=== PATIENT | female | born 1970 | race Caucasian/White ===

== ENCOUNTER 2018-06-21 07:45 | Inpatient (IN) ==
[2018-06-14 18:43] LABS: Appearance,Urine HAZY; Bacteria,Urine FEW /hpf (0); Bilirubin,Urine NEG (NEG); Color,Urine YELLOW; Glucose,Urine (UA) NEGATIVE (NEG); Leukocyte Esterase,Urine 25 /uL (NEG); Mucus,Urine MANY /hpf (0); Protein,Urine NEG (NEG); Urine Blood 0.03 mg/dL (<0.03); Urine Hyaline Cast 1 /lpf (0-2); Urine RBC 2 /hpf (0-1); Urine Squamous Epithelial Cell 3 /hpf (0-4); Urine WBC 15 /hpf (0-4); Urobilinogen,Urine NEG (NEG)
[2018-06-14 18:47] LABS: Blood Urea Nitrogen 14 mg/dl (6-20)
[2018-06-14 18:50] LABS: Basophils # (Auto) 0 K/mcL (0.0-0.3); Basophils % (Auto) 0.6 % (0.0-2.0); Eosinophils # (Auto) 0.2 K/mcL (0.0-0.7); Granulocytes % (Auto) 59.8 % (38.0-78.0); Lymphocytes # (Auto) 2.8 K/mcL (1.5-4.8); Lymphocytes % (Auto) 31.7 % (15.5-49.0); Mean Corpuscular HGB Conc 32.7 g/dL (31.0-36.0); Monocytes # (Auto) 0.5 K/mcL (0.1-0.9); Monocytes % (Auto) 5.9 % (1.0-12.0); Platelet Count 242 K/mcL (140-440); RBC 4.62 M/mcL (4.00-5.20); Red Cell Distribution Width 14.5 % (11.5-14.5)
[~2018-06-21 07:45] MED LIST: 0.9 % SODIUM CHLORIDE 9 ML, KETOROLAC 30 MG, ROPIVACAINE HCL/PF 49.5 ML, EPINEPHrine 0.... IJ SCH; SCOPOLAMINE 1 PATCH PATCH TOPICAL ONE; ceFAZolin 2 GM in DEXTROSE 5% IN WATER 50 ML IV SCH; ceFAZolin 3 GM in DEXTROSE 5% IN WATER 50 ML IV SCH
[2018-06-21] MEDS ORDERED: GENTAMICIN PER PHARMACY IV ONE (10:24)
[2018-06-21] MEDS ORDERED: SODIUM CHLORIDE 0.9% IV ONE (10:30)
[2018-06-21] MEDS ORDERED: GENTAMICIN SULFATE IV ONE (10:30)
[2018-06-21] MEDS ORDERED: GLYCOPYRROLATE 0.2 MG/ML VIAL IV ONE (10:54)
[2018-06-21] MEDS ORDERED: MIDAZOLAM 2 MG/2 ML VIAL ONE (10:54)
[2018-06-21] MEDS ORDERED: ONDANSETRON 4 MG/2 ML VIAL ONE (10:54)
[2018-06-21] MEDS ORDERED: KETAMINE 100 MG/ML ML ONE (10:54)
[2018-06-21] MEDS ORDERED: LIDOCAINE HCL/PF 100 MG/5 ML SYRINGE IV ONE (10:54)
[2018-06-21] MEDS ORDERED: DEXAMETHASONE 4 MG/ML VIAL ONE (10:54)
[2018-06-21] MEDS ORDERED: PROPOFOL 200 MG/20 ML VIAL IV ONE (10:54)
[2018-06-21] MEDS ORDERED: FAMOTIDINE/PF 20 MG/2 ML VIAL IV ONE (10:54)
[2018-06-21 11:12] LABS: Appearance,Urine CLEAR; Bilirubin,Urine NEG (NEG); Color,Urine YELLOW; Glucose,Urine (UA) NEGATIVE (NEG); Leukocyte Esterase,Urine NEG /uL (NEG); Protein,Urine NEG (NEG); Specific Gravity,Urine 1.014 (1.000-1.035); Urine Blood NEG mg/dL (<0.03); Urobilinogen,Urine NEG (NEG)
[2018-06-21] MEDS ORDERED: GENTAMICIN SULFATE 800 MG/20 ML VIAL IR ONE (11:35)
[2018-06-21] MEDS ORDERED: MAGNESIUM HYDROXIDE 30 ML ORAL.SUSP PO PRN (13:13)
[2018-06-21] MEDS ORDERED: BENZOCAINE/MENTHOL 1 LOZENGE PO PRN ×2 (13:13→13:39)
[2018-06-21] MEDS ORDERED: ONDANSETRON 4 MG/2 ML VIAL IV PRN ×2 (13:13→13:39)
[2018-06-21] MEDS ORDERED: BISACODYL 10 MG SUPP.RECT PR PRN (13:13)
[2018-06-21] MEDS ORDERED: POLYETHYLENE GLYCOL 3350 17 GM PACKET PO PRN (13:13)
[2018-06-21] MEDS ORDERED: TRANEXAMIC ACID 1,000 MG/10 ML VIAL IV SCH (13:13)
--- NOTE | 2018-06-21 13:24 | Brief Operative Note ---
Date of procedure: 06/21/18 Pre-op diagnosis: DJD left knee Post-op diagnosis: same Procedure: L TKR Grafts/Implants: Yes (triathlon sixe 6 femur, 45 tibia, 32 mm patella, 100 insert) Anesthesia: GETA Complications: none Surgeon: Jeferson Ivy Nuclear Technologist: Jeferson Ivy Estimated blood loss (cc): 250 Tourniquet Time (Minutes): 97 Specimens Removed/Pathology: none sent Condition: stable Disposition: PACU
[2018-06-21] MEDS ORDERED: LEVONORGESTREL 1 EACH IUD IY SCH (13:30)
[2018-06-21] MEDS ORDERED: HYDROmorphone 2 MG/ML VIAL IV PRN (13:39)
[2018-06-21] MEDS ORDERED: FLUMAZENIL 0.1 MG/ML ML IV PRN (13:39)
[2018-06-21] MEDS ORDERED: MEPERIDINE 50 MG/ML INJECTION IM PRN (13:39)
[2018-06-21] MEDS ORDERED: IPRATROPIUM/ALBUTEROL 3 ML AMPUL.NEB NEB PRN (13:39)
[2018-06-21] MEDS ORDERED: ACETAMINOPHEN 1,000 MG/100 ML BOTTLE IV ONE (13:39)
[2018-06-21] MEDS ORDERED: PROMETHAZINE 25 MG/ML VIAL IM PRN (13:39)
[2018-06-21] MEDS ORDERED: PROMETHAZINE 25 MG/ML VIAL IV PRN (13:39)
[2018-06-21] MEDS ORDERED: NALOXONE HCL 0.4 MG/ML VIAL IV PRN (13:39)
[2018-06-21] MEDS ORDERED: MEPERIDINE 25 MG/ML SYRINGE IV PRN (13:39)
[2018-06-21] MEDS ORDERED: fentaNYL 100 MCG/2 ML VIAL IV PRN (13:39)
[2018-06-21] MEDS ORDERED: LACTATED RINGERS 250 ML IV PRN (13:39)
[2018-06-21] MEDS ORDERED: LACTATED RINGERS 1,000 ML IV SCH (13:45)
--- NOTE | 2018-06-21 14:14 | XRay Report ---
CLINICAL INFORMATION: Left total knee arthroplasty TECHNIQUE: AP, crosstable lateral, patellar views COMPARISON: Preoperative evaluation dated 07/06/2017 FINDINGS: Status post left total knee arthroplasty. Femoral and tibial components are in anatomic positions. There is postsurgical soft tissue and intra-articular gas. IMPRESSION: Status post left total knee arthroplasty Interpreted and Authenticated by: Ivan Zuluaga 06/21/18
[2018-06-21] MEDS: 0.9 % SODIUM CHLORIDE 1,000 ML IV SCH (14:51)
[2018-06-21] MEDS: 0.9 % SODIUM CHLORIDE 10 ML SYRINGE IV SCH ×2 (14:51→21:24)
[2018-06-21] MEDS: METHOCARBAMOL 1,000 MG/10 ML VIAL IV PRN (15:08)
[2018-06-21] MEDS: FERROUS SULFATE 325 MG TABLET PO SCH (17:49)
[2018-06-21] MEDS: ceFAZolin 1 GM VIAL IV SCH (17:49)
[2018-06-21] MEDS ORDERED: TEMAZEPAM 15 MG CAPSULE PO PRN (21:00)
[2018-06-21] MEDS ORDERED: SULFAMETHOXAZOLE/TRIMETHOPRIM 1 TABLET PO SCH (21:00)
[2018-06-21] MEDS: DOCUSATE SODIUM 100 MG CAPSULE PO SCH (21:23)
[2018-06-21] MEDS: HYDROcodone/APAP 10/325MG TABLET PO PRN (21:23)
[2018-06-21] MEDS: SENNOSIDES 1 TABLET PO SCH (21:23)
[2018-06-21] MEDS: ASPIRIN 325 MG ENTERIC COATED TABLET PO SCH (21:23)
[2018-06-22] MEDS: ceFAZolin 1 GM VIAL IV SCH (02:03)
[2018-06-22] MEDS: METHOCARBAMOL 1,000 MG/10 ML VIAL IV PRN (03:51)
[2018-06-22] MEDS: 0.9 % SODIUM CHLORIDE 1,000 ML IV SCH ×2 (04:44→15:38)
[2018-06-22] MEDS: DOCUSATE SODIUM 100 MG CAPSULE PO SCH ×2 (08:51→20:54)
[2018-06-22] MEDS: SULFAMETHOXAZOLE/TRIMETHOPRIM 1 TABLET PO SCH ×2 (08:51→20:55)
[2018-06-22] MEDS: HYDROcodone/APAP 10/325MG TABLET PO PRN ×3 (08:51→20:53)
[2018-06-22] MEDS: ASPIRIN 325 MG ENTERIC COATED TABLET PO SCH ×2 (08:51→20:54)
[2018-06-22] MEDS: 0.9 % SODIUM CHLORIDE 10 ML SYRINGE IV SCH ×3 (08:52→20:55)
--- NOTE | 2018-06-22 09:51 | Operative Note ---
DATE OF OPERATION: 06/21/2018 PREOPERATIVE DIAGNOSIS: Degenerative joint disease of the left knee. POSTOPERATIVE DIAGNOSIS: Degenerative joint disease of the left knee. OPERATION: Left total knee replacement using the Axel and a Najma Triathlon knee. SURGEON: Jeferson Ivy M.D. RENDERER: José Manuel Baker PA-C. ANESTHESIA: General. TOURNIQUET TIME: About 90 minutes. ESTIMATED BLOOD LOSS: 100 mL. SUMMARY OF PROCEDURE: General anesthesia was attained. The left leg was prepped and draped, and the tourniquet was put up at 300 mmHg. A midline incision was made from the quadriceps to the tibial tubercle. This was taken down sharply to the quadriceps and medial retinaculum. The medial soft tissue on the anterior aspect of the tibia was released. The patella was mobilized laterally. The fat pad was debrided. The anterior menisci were resected. Proximal and distal to the incision, the arrays and the pins and clamp for the arrays were placed. Two slit incisions were made in each area. Blunt dissection was used to get down to the bone, and the pins were placed in the bone. The arrays were tightened and a sensor was placed. The hip center was located by rotating the hip and leg counterclockwise. The medial malleoli was identified as was the lateral malleolus. The femoral and tibial markers were placed. They were both then identified under the robot. Point confirmation was then done and registered on the femur, followed by the tibia. The first cut that was made with the robot was the tibia. This was followed by the posterior condyles and the posterior bevel, the anterior cut, and the anterior bevel on the distal cut. Trial components were placed. Overall, we felt the components were equally tight in flexion and extension, suggesting we needed a more distal tibial cut. We therefore recut the tibia 3 mm below the previous cut using the robotic guidance. We then retrialed everything and got an excellent combination of stability with a full range of motion. The patella was everted. A measured resection was done bringing the patella from 25 down to 14. The patella sized to a 32. The femoral size was 6 and the tibial size was 5. A 10 mm insert was used. All the bone surfaces were copiously irrigated. The components were cemented in. The cement was cured in full extension. Excess cement was removed. The no-touch test did show some lateral retinacular tightness. We therefore did a lateral retinacular release. The tourniquet was let down after the cement had hardened. Again, all excess cement was removed, and this was checked in extension and flexion. The quadriceps was closed in two layers using [id number] sutures of #2 FiberWire for the initial layer, followed by running locking Maxon. The subcutaneous tissue was closed with interrupted buried 2-0 Monocryl. The skin was closed with Dura-Markham. A sterile compressive dressing was applied. Prior to the wound closure, the tourniquet had been let down. Estimated blood loss was 100 mL. The sponge and needle count was correct. The patient tolerated the procedure well and was taken to the recovery room in stable condition. LESLIEF:amy Job ID: [id number] Doc ID: [id number] Jeferson Ivy MD
--- NOTE | 2018-06-22 10:08 | Orthopedic Progress Note ---
Subjective Patient information: Note initiated : 06/22/18 at 10:02 am Service Date, if different from initiated Date: [] Patient: Megan De La Cruz 47 y/o F admitted on 06/21/18 for Left Total Knee Arthroplasty Axel. Chief Complaint: [] Principal diagnosis: left knee replacement yesterday Objective Vital signs: Vital Signs Temp Pulse Resp BP BP Pulse Ox 06/22/18 08:00 18 98 06/22/18 06:44 98.9 F 18 125/68 98 06/22/18 03:53 98.2 F 82 16 112/73 95 06/21/18 23:59 97.9 F 83 16 97/54 98 06/21/18 19:15 97.6 F 94 H 16 131/78 93 06/21/18 17:45 85 138/85 94 06/21/18 17:30 97 H 18 137/83 95 06/21/18 17:15 87 151/87 96 06/21/18 17:00 79 141/89 95 06/21/18 16:45 97 H 137/83 95 06/21/18 16:30 64 18 131/74 94 06/21/18 16:15 97.5 F 83 135/82 97 06/21/18 16:00 97.5 F 82 18 133/78 94 06/21/18 15:45 86 18 141/80 96 06/21/18 15:30 76 16 125/73 91 06/21/18 15:15 74 18 116/76 95 06/21/18 15:00 97.3 F 78 14 135/81 96 06/21/18 14:35 97.2 F 78 13 142/73 96 06/21/18 14:22 98.1 F 85 16 147/70 95 06/21/18 14:05 98.9 F 71 16 146/72 96 06/21/18 13:50 74 15 147/71 97 06/21/18 13:45 76 14 138/87 96 06/21/18 13:40 79 8 L 124/50 98 06/21/18 13:35 98.9 F 90 13 136/79 96 Intake and Output 06/21/18 06/22/18 06/22/18 21:59 05:59 13:59 Intake Total 2340 1700 Output Total 901 1000 Balance 1439 700 Intake: IV 1000 Sodium Chloride 0.9% 1,000 ml @ 1000 75 mls/hr IV .[id number] KEE Rx#: [id number] Oral 240 GI Tube Flush 700 IV - Manual Only 2100 Output: Void Amount 900 1000 # of times incontinent of urine 1 Other: Meal Dinner Percent of Meal Consumed 75% Feeding Ability Independent Independent Urine Appearance Clear Clear Urine Color Bright Yellow Dark Yellow Bright Yellow Urine Odor Normal Normal Weight 314 lb 8 oz Intake & Output: Intake & Output 06/21/18 06/22/18 06/22/18 21:59 05:59 13:59 Intake Total 2340 1700 Output Total 901 1000 Balance 1439 700 Weight 314 lb 8 oz Intake: IV 1000 Sodium Chloride 0.9% 1,000 ml @ 1000 75 mls/hr IV .[id number] KEE Rx#: [id number] Oral 240 GI Tube Flush 700 IV - Manual Only 2100 Output: Void Amount 900 1000 # of times incontinent of urine 1 Other: Meal Dinner Percent of Meal Consumed 75% Feeding Ability Independent Independent Urine Appearance Clear Clear Urine Color Bright Yellow Dark Yellow Bright Yellow Urine Odor Normal Normal Dressing: Yes clean, Yes dry Weight bearing status: full Extremities exam IM: Yes neurovascular intact - Allied Health Allied health notes reviewed: PT - Labs CBC & BMP: 06/14/18 15:46 06/14/18 15:46 Labs: 06/14/18 15:46 Hgb 12.8 Hct 39.2 Assessment and Plan - Narrative A/P Narrative: doing well. Discussed d/c plan as she lives alone. she will try to get independent with walking by Monday
[2018-06-22] MEDS: FERROUS SULFATE 325 MG TABLET PO SCH ×2 (12:21→17:33)
[2018-06-22] MEDS: SENNOSIDES 1 TABLET PO SCH (20:54)
[2018-06-23] MEDS: 0.9 % SODIUM CHLORIDE 10 ML SYRINGE IV SCH (04:57)
[2018-06-23] MEDS: HYDROcodone/APAP 10/325MG TABLET PO PRN (07:02)
[2018-06-23] MEDS: DOCUSATE SODIUM 100 MG CAPSULE PO SCH (09:10)
[2018-06-23] MEDS: SULFAMETHOXAZOLE/TRIMETHOPRIM 1 TABLET PO SCH (09:10)
[2018-06-23] MEDS: ASPIRIN 325 MG ENTERIC COATED TABLET PO SCH (09:10)
[2018-06-23] MEDS: FERROUS SULFATE 325 MG TABLET PO SCH (11:14)
--- NOTE | 2018-06-23 12:06 | Discharge Summary ---
Providers - Providers Patient information: Note initiated : 06/23/18 at 12:04 pm Service Date, if different from initiated Date: [] Patient: Megan De La Cruz 47 y/o F admitted on 06/21/18 for Left Total Knee Arthroplasty Axel. Chief Complaint: [] Date of admission: 06/21/18 Discharge date: 06/23/18 Attending physician: Jeferson Ivy Hospitalization Hospital course: Pt admitted s/p total knee arthroplasty. Progressed satisfactorily and was d/c'd POD#2. Discharge diagnosis: s/p L total knee arthroplasty Reason for admission: Left knee pain Procedures: Left total knee 06/21/18 Exam - Exam Clean and dry: Yes (NVI distally) Ortho Discharge - TKA - Patient Instructions Diet: Regular Diet Activity: weight bearing as tolerated Total Knee Protocol: For Total Knee: Start ROM LEVI with stationary bike or rocking chair. Work on gaining full extension of knee. Posterior dislocation precautions provided. Hip abductor strengthening and gait training instructions provided. Apply Cryocuff as instructed. Dressing Care: Aquacel Ag - leave on for 5 days Patient Education: Hydrocodone/Acetaminophen (By mouth), Total Knee Replacement (DC) Additional Instructions: Discharge Instructions: Do the exercises at home that physical therapy gave you throughout the day. Weight bearing as tolerated. Wear comfortable clothing for physical therapy. You are scheduled to start physical therapy on June 25 at 10:30 am, please arrive 15 minutes early for paperwork. Take your prescription, photo ID, insurance cards, and current medication list with you to your first physical therapy appointment. Take your prescription to cook pickled meat any medication. You have Dermabond (a dressing with a mesh-like appearance), DO NOT remove mesh. Cover site daily with gauze dressing. You may start showering on post op day #2. The Dermabond dressing can get wet, do not scrub dressing. Pat dry, then place new dressing (above). To avoid constipation while taking any narcotic pain medication, take an over the counter stool softener/laxative. Use your Cryocuff or ice packs as directed, on for 20 minutes at a time throughout the day. This and elevation will help with pain and swelling. Call your physician for fevers above 100.5 or pain not controlled by medication. Your prescriptions are with your discharge information. Some medications were electronically transmitted to your pharmacy of choice. - Follow Up Plan Follow Up Appointments: José Manuel Baker PA-C [Physician Cargo Tank Mechanic] - 07/04/18 10:40 am Disposition: Home, Self-Care Prognosis: Fair Rehab Potential: Fair I certify that the patient requires SNF services: No - Orders For Discharge Prescriptions: HYDROcodone/APAP 10/325MG [Delano 10-325Mg] 1 tab PO Q4HP PRN #40 tab PRN Reason: Pain Level 3-6 Additional Discharge Orders: Physical Therapy at Discharge - TKA Location: None Selected Pending Studies Resuscitation Status Full Code Diet Regular Diet Start Tonya Jun 21 1504 Hydrocodone Bitart/Acetaminophen (Delano 10/325mg) 0 tab PO Q4HP PRN PRN Reason: PAIN LEVEL 3-6 Last Admin: 06/23/18 07:02 Dose: 2 tab Documented by: Admin: 06/22/18 20:53 Dose: 2 tab Documented by: Admin: 06/22/18 15:01 Dose: 1 tab Documented by: Admin: 06/22/18 08:51 Dose: 1 tab Documented by: Admin: 06/21/18 21:23 Dose: 1 tab Documented by: ANNIE Aspirin (Ecotrin) 325 mg PO BID [facility] Last Admin: 06/23/18 09:10 Dose: 325 mg Documented by: Admin: 06/22/18 20:54 Dose: 325 mg Documented by: Admin: 06/22/18 08:51 Dose: 325 mg Documented by: Admin: 06/21/18 21:23 Dose: 325 mg Documented by: ANNIE Docusate Sodium (Colace) 100 mg PO BID [facility] Last Admin: 06/23/18 09:10 Dose: 100 mg Documented by: Admin: 06/22/18 20:54 Dose: 100 mg Documented by: Admin: 06/22/18 08:51 Dose: 100 mg Documented by: Admin: 06/21/18 21:23 Dose: 100 mg Documented by: ANNIE Ferrous Sulfate (Ferrous Sulfate) 325 mg PO BID@1200,1800 [facility] Last Admin: 06/23/18 11:14 Dose: 325 mg Documented by: Admin: 06/22/18 17:33 Dose: 325 mg Documented by: Admin: 06/22/18 12:21 Dose: 325 mg Documented by: Admin: 06/21/18 17:49 Dose: 325 mg Documented by: BROOKE Methocarbamol (Robaxin) 750 mg IV Q6HP PRN PRN Reason: Muscle Spasm Last Admin: 06/22/18 03:51 Dose: 750 mg Documented by: Admin: 06/21/18 15:08 Dose: 750 mg Documented by: BROOKE Senna (Senokot) 2 tab PO HS [facility] Last Admin: 06/22/18 20:54 Dose: 2 tab Documented by: Admin: 06/21/18 21:23 Dose: 2 tab Documented by: ANNIE Sodium Chloride (Saline Flush) 10 ml IV Q8 [facility] Last Admin: 06/23/18 04:57 Dose: 10 ml Documented by: Admin: 06/22/18 20:55 Dose: Not Given Documented by: Admin: 06/22/18 15:02 Dose: 10 ml Documented by: Admin: 06/22/18 08:52 Dose: 10 ml Documented by: Admin: 06/21/18 21:24 Dose: Not Given Documented by: Admin: 06/21/18 14:51 Dose: Not Given Documented by: BROOKE Trimethoprim/Sulfamethoxazole (Bactrim Ds) 1 tab PO BID [facility] Last Admin: 06/23/18 09:10 Dose: 1 tab Documented by: Admin: 06/22/18 20:55 Dose: 1 tab Documented by: Admin: 06/22/18 08:51 Dose: 1 tab Documented by: ANGELIC Shift Summary 06/23/18 05:14 Shift Summary by Chantel Alba VSDebi A&Ox4. Medicated for pain with 10mg PO Delano x 2. Up to bathroom with FWW and SBA. Dressing to L knee with pencil eraser size shadow drainage. Cryo cuff on/off. CPM worn last evening for approx. 1 hour up to 45 degrees. Initialized on 06/23/18 05:14 - END OF NOTE
[2018-06-24] MEDS ORDERED: ERGOCALCIFEROL (VITAMIN D2) 50,000 UNIT CAPSULE PO SCH (09:00)
== END 2018-06-23 13:40 | disposition home or self-care (01) | DRG 470 ==
LOC: MEDSUR 08:44
PROVIDERS: ADMIT Orthopaedic Surgery Foot and Ankle Surgery; ATTEND Orthopaedic Surgery Foot and Ankle Surgery

== ENCOUNTER 2018-08-23 04:49 | Inpatient (IN) ==
[2018-08-22 18:05] LABS: Appearance,Urine CLEAR; Bilirubin,Urine NEG (NEG); Color,Urine YELLOW; Culture Indicated,Urine NO; Glucose,Urine (UA) NEGATIVE (NEG); Ketones,Urine NEG (NEG); Leukocyte Esterase,Urine NEG /uL (NEG); Nitrate,Urine NEG (NEG); Protein,Urine NEG (NEG); Urine Blood NEG mg/dL (<0.03); Urobilinogen,Urine NEG (NEG)
[2018-08-22 19:35] LABS: Basophils # (Auto) 0 K/mcL (0.0-0.3); Basophils % (Auto) 0.5 % (0.0-2.0); Eosinophils # (Auto) 0.2 K/mcL (0.0-0.7); Eosinophils % (Auto) 2.4 % (0.0-7.0); Granulocytes % (Auto) 63.8 % (38.0-78.0); Hematocrit 35.5 % (36.0-48.0); Hemoglobin 11.5 g/dL (12.0-15.0); Lymphocytes # (Auto) 2.2 K/mcL (1.5-4.8); Lymphocytes % (Auto) 26.4 % (15.5-49.0); Mean Cell Volume 84.4 fL (80.0-100.0); Mean Corpuscular HGB Conc 32.3 g/dL (31.0-36.0); Monocytes # (Auto) 0.6 K/mcL (0.1-0.9); Monocytes % (Auto) 6.9 % (1.0-12.0); Platelet Count 351 K/mcL (140-440); Red Cell Distribution Width 13.9 % (11.5-14.5); WBC 8.2 K/mcL (4.5-11.0)
[2018-08-22 19:38] LABS: Blood Urea Nitrogen 9 mg/dl (6-20); Calcium 9.4 mg/dl (8.6-10.4); Carbon Dioxide 25 mmol/L (22-30); Chloride 101 mmol/L (96-108); Glomerular Filtration Rate 103; Glucose 106 mg/dL (70-105); Potassium 4.1 mmol/L (3.3-5.1); Sodium 140 mmol/L (133-145)
[~2018-08-23 04:49] MED LIST changes: -0.9 % SODIUM CHLORIDE 9 ML, KETOROLAC 30 MG, ROPIVACAINE HCL/PF 49.5 ML, EPINEPHrine 0.... IJ SCH; +IPRATROPIUM/ALBUTEROL 3 ML AMPUL.NEB NEB PRN; -SCOPOLAMINE 1 PATCH PATCH TOPICAL ONE; +SCOPOLAMINE 1 PATCH PATCH TOPICAL PRN; -ceFAZolin 2 GM in DEXTROSE 5% IN WATER 50 ML IV SCH; -ceFAZolin 3 GM in DEXTROSE 5% IN WATER 50 ML IV SCH
[2018-08-23] MEDS ORDERED: SCOPOLAMINE 1 PATCH PATCH TOPICAL PRN (05:00)
[2018-08-23] MEDS ORDERED: IPRATROPIUM/ALBUTEROL 3 ML AMPUL.NEB NEB PRN ×2 (05:00→08:12)
[2018-08-23] MEDS ORDERED: ceFAZolin 3 GM in DEXTROSE 5% IN WATER 50 ML IV SCH (06:00)
[2018-08-23] MEDS ORDERED: PROPOFOL 200 MG/20 ML VIAL IV ONE (07:35)
[2018-08-23] MEDS ORDERED: fentaNYL 250 MCG/5 ML VIAL IV ONE (07:35)
[2018-08-23] MEDS ORDERED: DEXAMETHASONE 10 MG/ML VIAL IV ONE (07:35)
[2018-08-23] MEDS ORDERED: MIDAZOLAM 5 MG/5 ML VIAL IV ONE (07:35)
[2018-08-23] MEDS ORDERED: LIDOCAINE HCL/PF 100 MG/5 ML SYRINGE IV ONE (07:35)
[2018-08-23] MEDS ORDERED: TRANEXAMIC ACID 1,000 MG/10 ML VIAL IV ONE ×2 (07:35→08:59)
[2018-08-23] MEDS ORDERED: ONDANSETRON 4 MG/2 ML VIAL IV ONE (07:35)
[2018-08-23] MEDS ORDERED: GENTAMICIN SULFATE 800 MG/20 ML VIAL IR ONE (08:07)
[2018-08-23] MEDS ORDERED: METHOCARBAMOL 1,000 MG/10 ML VIAL IV PRN (08:12)
[2018-08-23] MEDS ORDERED: ONDANSETRON 4 MG/2 ML VIAL IV PRN ×2 (08:12→08:59)
[2018-08-23] MEDS ORDERED: HYDROmorphone 2 MG/ML VIAL IV PRN (08:12)
[2018-08-23] MEDS ORDERED: ATROPINE SULFATE 0.4 MG/ML VIAL IV PRN (08:12)
[2018-08-23] MEDS ORDERED: ePHEDrine 50 MG/ML AMPUL IV PRN (08:12)
[2018-08-23] MEDS ORDERED: PROMETHAZINE 25 MG/ML VIAL IV PRN (08:12)
[2018-08-23] MEDS ORDERED: NALOXONE HCL 0.4 MG/ML VIAL IV PRN (08:12)
[2018-08-23] MEDS ORDERED: diphenhydrAMINE 50 MG/ML VIAL IV PRN (08:12)
[2018-08-23] MEDS ORDERED: FLUMAZENIL 0.1 MG/ML ML IV PRN (08:12)
[2018-08-23] MEDS ORDERED: METOPROLOL TARTRATE 5 MG/5 ML VIAL IV PRN (08:12)
[2018-08-23] MEDS ORDERED: ACETAMINOPHEN 1,000 MG/100 ML BOTTLE IV ONE (08:12)
[2018-08-23] MEDS ORDERED: MEPERIDINE 25 MG/ML SYRINGE IV PRN (08:12)
[2018-08-23] MEDS ORDERED: LACTATED RINGERS 1,000 ML IV SCH (08:15)
[2018-08-23] MEDS ORDERED: TOBRAMYCIN SULFATE 1.2 GM VIAL TOPICAL ONE (08:33)
[2018-08-23] MEDS ORDERED: VANCOMYCIN 500 MG VIAL TOPICAL SCH (08:45)
[2018-08-23] MEDS ORDERED: BENZOCAINE/MENTHOL 1 LOZENGE PO PRN (08:59)
[2018-08-23] MEDS ORDERED: BISACODYL 10 MG SUPP.RECT PR PRN (08:59)
[2018-08-23] MEDS ORDERED: MAGNESIUM HYDROXIDE 30 ML ORAL.SUSP PO PRN (08:59)
[2018-08-23] MEDS ORDERED: METHOCARBAMOL 750 MG TABLET PO PRN (08:59)
[2018-08-23] MEDS ORDERED: FLEETS ADULT ENEMA PR PRN (08:59)
[2018-08-23] MEDS ORDERED: POLYETHYLENE GLYCOL 3350 17 GM PACKET PO PRN (08:59)
--- NOTE | 2018-08-23 09:14 | Brief Operative Note ---
Date of procedure: 08/23/18 Pre-op diagnosis: infected left knee /s/p arrthroplasty Post-op diagnosis: same Procedure: Liner exchange, irrigation, debridement, biopsies, placement of atb beads Grafts/Implants: Yes ( 9 mm poly liner, CS) Anesthesia: GETA Surgeon: Jeferson Ivy Animal Pathology Teacher: José Manuel Baker Estimated blood loss (cc): 100 Tourniquet Time (Minutes): 32 Specimens Removed/Pathology: other (extrasynovial, intrasynovial, bone of femur, bone of tibia biopsy (3), cultures (4)) Condition: stable Disposition: floor
[2018-08-23] MEDS ORDERED: LEVONORGESTREL IY SCH (09:15)
[2018-08-23] MEDS ORDERED: VANCOMYCIN 500 MG VIAL TOPICAL ONE (09:15)
--- NOTE | 2018-08-23 09:23 | Infectious Disease Consult ---
History of Present Illness Patient information: Note initiated : 08/23/18 at 9:21 am Service Date, if different from initiated Date: [] Patient: Megan De La Cruz 47 y/o F admitted on 08/23/18 for Removal and Exchange Left Knee Liner Placement. Chief Complaint: [] Consult date: 08/23/18 Requesting Physician: Jeferson Ivy Reason for Consult: Left prosthetic knee infection Chief complaint: my knee turned red and swollen History of present illness: 47 year old lady with left TKA done about 2.5 mnths ago, now admitted with knee swelling and pain concerning for infection. She underwent "Liner exchange, irrigation, debridement, biopsies, placement of antibiotic beads" this am per Dr Ivy. She recieved periop IV Cefazolin. She does not remember if she had a preop MRSA nasal screening or not prior to the original surgery. I saw her after surgery in afternoon. She reported that "I got almost bone-to bone osteoarthritis in my left knee. I underwent elective left knee TKA in June 2018". She did well after surgery, recovered completely and went back to work and was doing fine. Last week, she noticed pain in left knee while walking which was followed by redness, swelling. Around Monday pt went to [facility], where she was placed on water pills initially and then recieved antibiotics. She didnot have knee aspiration done there. She was seen by Dr. Ivy in clinic on 08/22/18 when she underwent left knee aspiration and was asked to come to hospital for surgery. Denied any sick contacts, trauma to knee, any skin boils recently. Review of Systems All systems PM: reviewed and no additional remarkable complaints except as stated Past History Past family history: No sick contacts Past social history: doesnt smoke or use alc or IV drugs Medications and Allergies Home Medications Medication Instructions Recorded Confirmed Type ergocalciferol (vitamin D2) 50,000 1 cap PO SUWE@0900 28 Days #8 cap 05/22/18 08/23/18 History unit capsule infliximab 100 mg intravenous 600 mg IV .Q5w each 05/22/18 08/22/18 History solution Diclofenac Sodium [Voltaren] 100 gm TP PRN PRN 06/14/18 08/22/18 History Levonorgestrel [Mirena] 1 each IY ONCE 06/14/18 08/22/18 History Sulfamethoxazole/Trimethoprim 800 tab PO BID 06/21/18 08/23/18 History [Bactrim Ds] Acetaminophen [8Hr Arthritis Pain] 650 mg PO TID 08/22/18 08/23/18 History Cephalexin [Keflex] 500 mg PO QID 08/22/18 08/23/18 History oxyCODONE HCL [Roxicodone] 1 tab PO Q4HP PRN #60 tab 08/24/18 Rx Allergies Allergy/AdvReac Type Severity Reaction Status Date / Time fluticasone AdvReac Mild Other Verified 08/22/18 16:07 [From Advair Diskus] hydrocodone AdvReac Mild Nausea Verified 08/22/18 16:07 NSAIDS (Non-Steroidal AdvReac Mild GI upset Verified 08/22/18 16:07 Anti-Inflamma salmeterol AdvReac Mild Other Verified 08/22/18 16:07 [From Advair Diskus] Physical Examination Vital signs: Temp Pulse Resp BP Pulse Ox 37.1 C 78 20 138/79 97 08/23/18 04:59 08/23/18 04:59 08/23/18 04:59 08/23/18 04:59 08/23/18 04:59 General appearance: no acute distress Eyes pulmonary: nonicteric ENT: other (no thrush) Auscultation: bilateral: clear Cardiovascular: regular rate and rhythm Gastrointestinal: normoactive bowel sounds, soft, non-tender Extremities: no edema Gait: other (left knee under surgical dressing (therefore could not be examined)) Results - Laboratory Findings CBC and BMP: 08/22/18 16:37 08/22/18 16:37 Abnormal lab findings: Abnormal Labs 08/22/18 08/22/18 16:37 16:37 Hgb 11.5 L Hct 35.5 L Glucose 106 H Assessment and Plan - Narrative A/P Narrative: A: 1. Left prosthetic knee infection: - POD # 0 after Incision and drainage, Liner exchange, Bone biopsies of the left femur and the left tibia, Placement of antibiotic beads - Operative Cx being processed. GS showing few WBCs, mod RBCs and no organisms - MRSA nasal screen negative today 2. Obesity Recommendations: - will arrange PICC line placement tomorrow. - Start IV Vancomycin per pharmacy assisted dosing. Check trough before the 4th dose (target 10-20) - Start IV Ceftriaxone 2 gm q24 hrs - await results of synovial fluid sent for 16S rRNA sequencing sent on 08/22/18 -unless synovial fluid Cx are showing results, will plan for 6 weeks course of above antibiotics - will check baseline ESR and CRP tomorrow will follow James Quach MD Infectious diseases
[2018-08-23] MEDS: fentaNYL 100 MCG/2 ML VIAL IV PRN ×4 (09:42→09:48)
--- NOTE | 2018-08-23 10:27 | Operative Note ---
DATE OF OPERATION: 08/23/2018 PREOPERATIVE DIAGNOSIS: Infection, status post left total knee replacement. POSTOPERATIVE DIAGNOSIS: Infection, status post left total knee replacement. OPERATION: 1. Incision and drainage. 2. Liner exchange. 3. Bone biopsies of the left femur and the left tibia. 4. Placement of antibiotic beads. SURGEON: Jeferson Ivy MD GUITAR REPAIRER: José Manuel Baker PA-C. The PA's assistance was required for the safe and efficient completion of the entire case. This provider's expertise and technical skill were required throughout the case. The PA assisted with preoperative coordination, intraoperative retraction, wound closure, dressing and splint application, as well as postoperative documentation and care coordination. ANESTHESIA: General done by Savannah Mayen CRNA. SUMMARY OF PROCEDURE: General anesthesia was attained. The left leg was prepped and draped. An incision was made from the quadriceps to the tibial tubercle and I ellipsed some unhealthy looking broken down skin. The incision was taken down to the quadriceps mechanism which was intact. There was fluid under pressure which was cloudy and a culture of this was sent. The area was then thoroughly debrided and irrigated with 3 liters of jet lavage and 500 mL IrriSept. We then changed gloves. The quadriceps split/sub vastus approach was reopened. The sutures were removed. The intrasynovial fluid was sampled and this was sent for aerobic and anaerobic cultures. The joint was next exposed. The anterior medial soft tissue was elevated and the patella was retracted. I used an osteotome to liberate and then removed the liner as well as the wire of the liner. The joint was thoroughly irrigated with 6 liters of jet lavage and 500 mL of IrriSept. A bone biopsy was taken using a Jamshidi needle of the femur. Specimen was sent for a bone culture and bone biopsy. The same was done of the tibia. After thorough debridement and irrigation a new same size liner, 9 mm CS was reinserted and impacted. The antibiotics beads were placed throughout. The quadriceps and medial retinaculum were closed with a Stratafix. The subcutaneous tissue was closed with buried 2-0 Monocryl and the skin was handsewn meticulously with mattress sutures of 2-0 nylon. A sterile compressive dressing was applied. No drain was used. Tourniquet was used for 32 minutes. Hemostasis was attained through the surgery. After letting the tourniquet down the patient got 3 grams of Ancef IV. This was not given until cultures and specimens had been obtained. TJF:[email or web address] Job ID: [id number] Doc ID: [id number] Jeferson Ivy MD
[2018-08-23] MEDS: 0.9 % SODIUM CHLORIDE 1,000 ML IV SCH ×2 (10:38→21:02)
[2018-08-23] MEDS: oxyCODONE HCL 5 MG TABLET PO PRN ×3 (12:34→20:58)
[2018-08-23] MEDS: 0.9 % SODIUM CHLORIDE 10 ML SYRINGE IV SCH ×2 (13:32→22:57)
[2018-08-23] MEDS: DOCUSATE SODIUM 100 MG CAPSULE PO SCH ×2 (13:35→20:57)
[2018-08-23] MEDS ORDERED: ceFAZolin 1 GM VIAL IV SCH (16:00)
[2018-08-23] MEDS ORDERED: VANCOMYCIN PER PHARMACY IV ONE (18:13)
[2018-08-23] MEDS: SULFAMETHOXAZOLE/TRIMETHOPRIM 1 TABLET PO SCH (20:57)
[2018-08-23] MEDS: ASPIRIN 81 MG TAB.CHEW PO SCH (20:58)
[2018-08-23] MEDS: SENNOSIDES 1 TABLET PO SCH (20:58)
[2018-08-23] MEDS: VANCOMYCIN 1,500 MG in 0.9 % SODIUM CHLORIDE 500 ML IV SCH (22:57)
[2018-08-24] MEDS: oxyCODONE HCL 5 MG TABLET PO PRN ×4 (00:46→20:40)
[2018-08-24] MEDS ORDERED: cefTRIAXone 2 GM VIAL ONE ×3 (01:11→16:56)
[2018-08-24] MEDS: cefTRIAXone 2 GM in DEXTROSE 5% IN WATER 50 ML IV SCH ×2 (01:33→17:04)
[2018-08-24] MEDS: 0.9 % SODIUM CHLORIDE 10 ML SYRINGE IV SCH ×5 (04:36→22:26)
[2018-08-24 05:55] LABS: C-Reactive Protein 3.9 mg/dl (0.0-0.8)
[2018-08-24] MEDS ORDERED: VANCOMYCIN PER PHARMACY IV SCH (06:30)
[2018-08-24] MEDS: SULFAMETHOXAZOLE/TRIMETHOPRIM 1 TABLET PO SCH (08:19)
[2018-08-24] MEDS: DOCUSATE SODIUM 100 MG CAPSULE PO SCH ×2 (08:19→20:50)
[2018-08-24] MEDS: ASPIRIN 81 MG TAB.CHEW PO SCH ×2 (08:20→20:50)
[2018-08-24] MEDS ORDERED: 0.9 % SODIUM CHLORIDE 10 ML SYRINGE IV PRN (08:32)
[2018-08-24] MEDS: VANCOMYCIN 1,500 MG in 0.9 % SODIUM CHLORIDE 500 ML IV SCH ×2 (08:53→20:50)
--- NOTE | 2018-08-24 12:37 | Surgical Pathology Report ---
HISTOLOGY SPECIMEN MICROSCOPIC DIAGNOSIS SPECIMEN A - SYNOVIUM, LEFT KNEE, BIOPSY: -- SYNOVIUM AND FIBROTIC SOFT TISSUE WITH CHRONIC INFLAMMATION. -- NO SIGNIFICANT NEUTROPHILIC INFLAMMATION IDENTIFIED (LESS THAN 1 NEUTROPHIL/hpf). SPECIMEN B - BONE, LEFT KNEE, FEMUR, BIOPSY: -- VIABLE BONE AND MARROW. -- NO OSTEOMYELITIS IDENTIFIED. SPECIMEN C - BONE, LEFT KNEE, TIBIA, BIOPSY: -- VIABLE BONE AND MARROW. -- NO OSTEOMYELITIS IDENTIFIED. (DMT:sln) PROCEDURAL IMPRESSION Left knee injection status post left total knee. GROSS DESCRIPTION Specimen A: Received in formalin labeled intrasynovial biopsy, is a 1.5 x 0.6 x 0.4 cm fragment of pink-cardoso to marks-cardoso tissue. Totally submitted - one cassette. Specimen B: Received in formalin labeled bone femur biopsy, is a 0.4 cm in length by up to 0.2 cm in diameter marks-cardoso core of bone. The specimen will be calcified before processing. Totally submitted - one cassette. Specimen C: Received in formalin labeled bone tibia biopsy, is a 0.5 cm in length by up to 0.2 cm in diameter marks-cardoso core of bone. The specimen will undergo calcification before processing. Totally submitted - one cassette. (KGW:jesus) Electronically Signed by: Ponce Qiu M.D.
--- NOTE | 2018-08-24 12:48 | Discharge Summary ---
Providers - Providers Patient information: Note initiated : 08/24/18 at 12:45 pm Service Date, if different from initiated Date: [] Patient: Megan De La Cruz 47 y/o F admitted on 08/23/18 for Removal and Exchange Left Knee Liner Placement. Chief Complaint: [] Discharge date: 08/24/18 Hospitalization Hospital course: Patient was admitted after left TKA incision and drainage and liner exchange with placement of antibiotic beads for pain control and infectious disease consultation. Her stay has been uneventful. Discharge diagnosis: s/p left knee incision and drainage with liner exchange and antibiotic bead Exam - Exam Incision healing: Yes Ortho Discharge Plan - General - Patient Instructions Diet: Regular Diet Activity: activity as tolerated Dressing Care: Aquacel Ag - leave on for 5 days - Follow Up Plan Disposition: Home, Self-Care Prognosis: Good Rehab Potential: Good Overall status at discharge: patient is progressing back to baseline - Orders For Discharge Prescriptions: oxyCODONE HCL [Roxicodone] 1 tab PO Q4HP PRN #60 tab PRN Reason: Pain Level 3-6 Pending Studies Resuscitation Status Full Code Diet Regular Diet Start MonAug 23 Lunch Aspirin (Aspirin) 81 mg PO BID [facility] Last Admin: 08/24/18 08:20 Dose: 81 mg Documented by: Admin: 08/23/18 20:58 Dose: 81 mg Documented by: SEB Docusate Sodium (Colace) 100 mg PO BID [facility] Last Admin: 08/24/18 08:19 Dose: 100 mg Documented by: Admin: 08/23/18 20:57 Dose: 100 mg Documented by: Admin: 08/23/18 13:35 Dose: 100 mg Documented by: [email or web address] Sodium Chloride (Sodium Chloride 0.9%) 1,000 mls @ 75 mls/hr IV .[id number] [facility] Last Admin: 08/23/18 21:02 Dose: Not Given Documented by: Infusion: 08/23/18 19:48 Dose: 0 mls/hr Documented by: Admin: 08/23/18 10:38 Dose: 75 mls/hr Documented by: [email or web address] Vancomycin HCl 1,500 mg/ (Sodium Chloride) 500 mls @ 333.3 mls/hr IV Q12H [facility] Last Infusion: 08/24/18 11:02 Dose: 0 mls/hr Documented by: Admin: 08/24/18 08:53 Dose: 333.3 mls/hr Documented by: Infusion: 08/24/18 00:30 Dose: 0 mls/hr Documented by: Admin: 08/23/18 22:57 Dose: 333.3 mls/hr Documented by: SEB Ceftriaxone Sodium 2 gm/ (Dextrose) 50 mls @ 100 mls/hr IV DAILY [facility]; Protocol Last Admin: 08/24/18 01:33 Dose: Not Given Documented by: SEB Morphine Sulfate (Morphine) 0 mg IV Q1HP PRN PRN Reason: PAIN LEVEL > 6 Last Admin: 08/23/18 15:27 Dose: 2 mg Documented by: [email or web address] Admin: 08/23/18 10:34 Dose: 2 mg Documented by: [email or web address] Oxycodone HCl (Roxicodone) 0 mg PO Q4HP PRN PRN Reason: PAIN LEVEL 3-6 Last Admin: 08/24/18 04:49 Dose: 10 mg Documented by: Admin: 08/24/18 00:46 Dose: 10 mg Documented by: Admin: 08/23/18 20:58 Dose: 10 mg Documented by: Admin: 08/23/18 16:46 Dose: 10 mg Documented by: [email or web address] Admin: 08/23/18 12:34 Dose: 5 mg Documented by: [email or web address] Senna (Senokot) 2 tab PO HS [facility] Last Admin: 08/23/18 20:58 Dose: 2 tab Documented by: SEB Sodium Chloride (Saline Flush) 10 ml IV Q8 [facility] Last Admin: 08/24/18 04:36 Dose: 10 ml Documented by: Admin: 08/23/18 22:57 Dose: 10 ml Documented by: Admin: 08/23/18 13:32 Dose: Not Given Documented by: [email or web address] Shift Summary 08/24/18 05:00 Shift Summary by Adriana Adrian Pt is A&O x 4. VSS on RA, with exception of elevated BP. Up with SBA and FWW. Pt has been up to BR x 3, voids large amounts at a time. Pt got Roxicodone 10 mg x 3 for pain. Dressing to left knee CDI. Denies numbness/tingling. Patient has order for PICC placement today. Currently, peripheral IV to left hand, saline- locked w/intermittent ABO. Will update with verbal report. Initialized on 08/24/18 05:00 - END OF NOTE
--- NOTE | 2018-08-24 16:21 | Infectious Disease Prog Note ---
Subjective Patient information: Note initiated : 08/24/18 at 4:11 pm Service Date, if different from initiated Date: [] Patient: Megan De La Cruz 47 y/o F admitted on 08/23/18 for Removal and Exchange Left Knee Liner Placement. Chief Complaint: [] Interval history: Pt doing well. Denied any fever, chills, n/v/diarrhea. Discussed plans to get a PICC line today, IV antibiotics, await finalization of operative and preop Cx. Shared about possible discharge later tomorrow. Objective Objective Narrative: ao x 3, in nad no thrush chest cta s1 s2 normal bs ++, nttd Left knee covered in surgical dressing. Pt able to move her toes of left foot without any problems - Vital Signs Vital signs: Vital Signs Temp Pulse Resp BP Pulse Ox 08/24/18 16:00 77 08/24/18 12:00 77 08/24/18 11:09 36.8 C 77 16 132/86 96 08/24/18 08:00 82 08/24/18 06:45 36.6 C 12 139/86 96 08/24/18 04:00 36.8 C 82 16 154/84 97 08/24/18 00:30 36.6 C 79 16 128/71 97 08/23/18 19:21 37.0 C 75 16 146/76 96 08/23/18 17:52 96 Intake and Output 08/24/18 08/24/18 08/24/18 05:59 13:59 21:59 Intake Total 1050 1100 Output Total 1750 1200 Balance -700 -100 Intake: IV 500 500 Vancomycin 1,500 mg In Sodium 500 500 Chloride 0.9% 500 ml @ 333.3 mls/hr IV Q12H [facility] Rx#: [id number] Oral 550 600 Output: Void Amount 1750 1200 Other: Meal Lunch Percent of Meal Consumed 100% Feeding Ability Independent Urine Appearance Clear Clear Urine Color Bright Yellow Bright Yellow # Voids 1 Weight 130.635 kg Patient Weight 08/25/18 05:59 Weight 130.635 kg Intake & Output: Intake & Output 08/24/18 08/24/18 08/24/18 05:59 13:59 21:59 Intake Total 1050 1100 Output Total 1750 1200 Balance -700 -100 Weight 130.635 kg Intake: IV 500 500 Vancomycin 1,500 mg In Sodium 500 500 Chloride 0.9% 500 ml @ 333.3 mls/hr IV Q12H [facility] Rx#: [id number] Oral 550 600 Output: Void Amount 1750 1200 Other: Meal Lunch Percent of Meal Consumed 100% Feeding Ability Independent Urine Appearance Clear Clear Urine Color Bright Yellow Bright Yellow # Voids 1 - Lab 08/22/18 16:37 08/22/18 16:37 Most recent lab results Calcium 9.4 mg/dl (8.6-10.4) 08/22/18 16:37 Microbiology 08/23/18 12:10 Bone - Left Gram Stain - Final 08/23/18 12:10 Bone - Left Tissue Culture - Preliminary 08/23/18 12:10 Bone - Left Gram Stain - Final 08/23/18 12:10 Bone - Left Tissue Culture - Preliminary 08/23/18 12:08 Synovial Fluid - Knee Gram Stain - Final 08/23/18 12:08 Synovial Fluid - Knee Body Fluid Culture - Preliminary Staphylococcus aureus 08/23/18 12:09 Tissue - Knee Gram Stain - Final 08/23/18 12:09 Tissue - Knee Tissue Culture - Preliminary 08/23/18 12:08 Synovial Fluid - Knee Gram Stain - Final 08/23/18 12:08 Synovial Fluid - Knee Body Fluid Culture - Preliminary 08/23/18 12:08 Knee - Left Gram Stain - Final 08/23/18 12:08 Knee - Left Gram Stain - Final 08/23/18 12:08 Knee - Left Anaerobic Culture - Preliminary 08/23/18 12:08 Synovial Fluid - Knee Gram Stain - Final 08/23/18 12:08 Synovial Fluid - Knee Gram Stain - Final 08/23/18 12:08 Synovial Fluid - Knee Anaerobic Culture - Preliminary 08/23/18 12:09 Tissue - Knee Gram Stain - Final 08/23/18 12:09 Tissue - Knee Gram Stain - Final 08/23/18 12:09 Tissue - Knee Anaerobic Culture - Preliminary 08/23/18 12:09 Bone - Left Gram Stain - Final 08/23/18 12:09 Bone - Left Gram Stain - Final 08/23/18 12:09 Bone - Left Anaerobic Culture - Preliminary 08/23/18 12:10 Bone - Left Gram Stain - Final 08/23/18 12:10 Bone - Left Gram Stain - Final 08/23/18 12:10 Bone - Left Anaerobic Culture - Preliminary 08/23/18 14:50 Nose MRSA (PCR) - Final Medications Active Medications: Aspirin (Aspirin) 81 mg PO BID [facility] Last Admin: 08/24/18 08:20 Dose: 81 mg Documented by: Admin: 08/23/18 20:58 Dose: 81 mg Documented by: SEB Bisacodyl (Dulcolax) 10 mg [place] Q2-3DAYS PRN PRN Reason: Constipation Docusate Sodium (Colace) 100 mg PO BID [facility] Last Admin: 08/24/18 08:19 Dose: 100 mg Documented by: Admin: 08/23/18 20:57 Dose: 100 mg Documented by: Admin: 08/23/18 13:35 Dose: 100 mg Documented by: [facility] Ergocalciferol (Drisdol) 50,000 unit PO SUWE@0900 [facility] Heparin Sodium (Porcine) (Heparin Flush) 2 ml IV Q12 [facility] Sodium Chloride (Sodium Chloride 0.9%) 1,000 mls @ 75 mls/hr IV .[id number] [facility] Last Admin: 08/23/18 21:02 Dose: Not Given Documented by: SEB Non-Admin Reason: Tolerating PO Infusion: 08/23/18 19:48 Dose: 0 mls/hr Documented by: Admin: 08/23/18 10:38 Dose: 75 mls/hr Documented by: [facility] Vancomycin HCl 1,500 mg/ (Sodium Chloride) 500 mls @ 333.3 mls/hr IV Q12H [facility] Last Infusion: 08/24/18 11:02 Dose: 0 mls/hr Documented by: Admin: 08/24/18 08:53 Dose: 333.3 mls/hr Documented by: Infusion: 08/24/18 00:30 Dose: 0 mls/hr Documented by: Admin: 08/23/18 22:57 Dose: 333.3 mls/hr Documented by: SEB Ceftriaxone Sodium 2 gm/ (Dextrose) 50 mls @ 100 mls/hr IV DAILY [facility]; Protocol Last Admin: 08/24/18 01:33 Dose: Not Given Documented by: SEB Non-Admin Reason: Duplicate Magnesium Hydroxide (Milk Of Magnesia) 30 ml PO BIDP PRN PRN Reason: Constipation Methocarbamol (Robaxin) 750 mg PO Q6HP PRN PRN Reason: Muscle Spasm Morphine Sulfate (Morphine) 0 mg IV Q1HP PRN PRN Reason: PAIN LEVEL > 6 Last Admin: 08/23/18 15:27 Dose: 2 mg Documented by: [email or web address] Admin: 08/23/18 10:34 Dose: 2 mg Documented by: [email or web address] Ondansetron HCl (Zofran) 4 mg IV Q4HP PRN PRN Reason: Nausea And Vomiting Oxycodone HCl (Roxicodone) 0 mg PO Q4HP PRN PRN Reason: PAIN LEVEL 3-6 Last Admin: 08/24/18 13:39 Dose: 10 mg Documented by: [email or web address] Admin: 08/24/18 04:49 Dose: 10 mg Documented by: Admin: 08/24/18 00:46 Dose: 10 mg Documented by: Admin: 08/23/18 20:58 Dose: 10 mg Documented by: Admin: 08/23/18 16:46 Dose: 10 mg Documented by: [email or web address] Admin: 08/23/18 12:34 Dose: 5 mg Documented by: [email or web address] Diclofenac Sodium [ Voltaren] Topical Gel 1 dose TOPICAL DAILYP PRN PRN Reason: Pain Polyethylene Glycol (Miralax) 17 gm PO DAILYP PRN PRN Reason: Constipation Senna (Senokot) 2 tab PO HS [facility] Last Admin: 08/23/18 20:58 Dose: 2 tab Documented by: SEB Sodium Biphosphate/Sodium Phosphate (Fleets Adult) 1 dose [place] Q3-4DAYS PRN PRN Reason: Constipation Sodium Chloride (Saline Flush) 10 ml IV Q8 [facility] Last Admin: 08/24/18 04:36 Dose: 10 ml Documented by: Admin: 08/23/18 22:57 Dose: 10 ml Documented by: Admin: 08/23/18 13:32 Dose: Not Given Documented by: [facility] Non-Admin Reason: Continuous IV Sodium Chloride (Saline Flush) 10 ml IV UD PRN PRN Reason: FLUSH Sodium Chloride (Saline Flush) 10 ml IV Q12 [facility] Throat Lozenges (Cepacol) 1 lozenge PO PRN PRN PRN Reason: Sore Throat Vancomycin HCl (Vancomycin Per Pharmacy) 1 order IV UD [facility]; Protocol Assessment and Plan - Narrative A/P Narrative: A: 1. Subacute Left prosthetic knee septic arthritis: - POD # 1 after "Incision and drainage, Liner exchange, Bone biopsies of the left femur and the left tibia, Placement of antibiotic beads" - Staph aureus growing from extra-synovial operative cultures from left knee - MRSA nasal screen negative - baseline pre-treatment ESR at 95, CRP at 3.9 2. Obesity Recommendations: - PICC line today - Continue IV Vancomycin per pharmacy assisted dosing. Check trough before the 4th dose (target 10-20) tomorrow am - Continue IV Ceftriaxone 2 gm q24 hrs - will follow synovial fluid sent for 16S rRNA sequencing sent on 08/22/18 - will plan for a 6 week course of IV antibiotics once sensitivities for Staph aureus are available Start date: 08/23/18 Stop date: 09/04/18 Follow up labs: CBC, BMP once weekly CRP and ESR every other week - will schedule a follow up appt. in ID clinic in 4 weeks will follow James Quach MD Infectious diseases
--- NOTE | 2018-08-24 16:39 | XRay Report ---
CLINICAL INFORMATION: PICC PLACEMENT COMPARISON: 08/09/2008 FINDINGS: Right PICC line tip overlies the SVC right atrial junction. The heart is accentuated by lordotic positioning and portable technique and within normal limits. Mediastinum and pulmonary vessels are unremarkable. The lungs are clear. No effusions. IMPRESSION: PICC line in satisfactory position. Negative chest Interpreted and Authenticated by: Ivan Lerner 08/24/18
[2018-08-24] MEDS: 0.9 % SODIUM CHLORIDE 1,000 ML IV SCH (17:22)
[2018-08-24] MEDS: SENNOSIDES 1 TABLET PO SCH (20:50)
[2018-08-25] MEDS: oxyCODONE HCL 5 MG TABLET PO PRN ×3 (02:20→17:30)
[2018-08-25] MEDS: 0.9 % SODIUM CHLORIDE 1,000 ML IV SCH (05:01)
[2018-08-25] MEDS: 0.9 % SODIUM CHLORIDE 10 ML SYRINGE IV SCH ×5 (05:04→20:59)
[2018-08-25] MEDS: cefTRIAXone 2 GM in DEXTROSE 5% IN WATER 50 ML IV SCH (09:11)
[2018-08-25] MEDS: ASPIRIN 81 MG TAB.CHEW PO SCH ×2 (09:12→20:59)
[2018-08-25] MEDS: DOCUSATE SODIUM 100 MG CAPSULE PO SCH ×2 (09:12→20:59)
--- NOTE | 2018-08-25 11:19 | Infectious Disease Prog Note ---
Subjective Patient information: Note initiated : 08/25/18 at 11:16 am Service Date, if different from initiated Date: [] Patient: Megan De La Cruz a 47 y/o F admitted on 08/23/18 for Removal and Exchange Left Knee Liner Placement. Chief Complaint: [] Interval history: pt feels better. Is able to walk using a walker. No diarrhea, n/v, fever. Endorses knee stiffness and pain.Discussed plan to do IV Cefazolin. I shared w ith her that we don't have a CADD pump available yet in hospital, but would be available sometimes this coming week. She is willing to come to [facility] every day to get Cefazolin 3 times daily. Shared info about follow-up labs and f/u in ID clinic. Objective Objective Narrative: ao x3, in nad no thrush chest cta s1 s2 normal Left knee: swollen compared to right side, dressing in place. Pt able to wiggle her toes without any difficulty Rt arm PICC line looks fine, except for some clotted blood underneath the dressing - Vital Signs Vital signs: Vital Signs Temp Pulse Resp BP BP Pulse Ox 08/25/18 07:08 36.4 C 18 144/84 96 08/25/18 04:00 36.9 C 78 16 121/67 97 08/25/18 00:00 37.2 C 86 16 112/67 97 08/24/18 19:19 37.2 C 96 H 16 149/80 96 08/24/18 16:00 37.1 C 77 20 153/72 92 08/24/18 12:00 77 Intake and Output 08/24/18 08/25/18 08/25/18 21:59 05:59 13:59 Intake Total 590 600 720 Output Total 1200 2400 Balance -610 -1800 720 Intake: IV 50 Rocephin 2 gm In Dextrose 5% in 50 Water 50 ml @ 100 mls/hr IV DAILY [facility] Rx#:[id number] Oral 540 600 720 Output: Void Amount 1200 2400 Other: Meal Dinner Breakfast Percent of Meal Consumed 100% 100% Feeding Ability Independent Independent Urine Appearance Clear Clear Urine Color Bright Yellow Bright Yellow Urine Odor Normal # Bowel Movements 0 Weight 130.635 kg Intake & Output: Intake & Output 08/24/18 08/25/18 08/25/18 21:59 05:59 13:59 Intake Total 590 600 720 Output Total 1200 2400 Balance -610 -1800 720 Weight 130.635 kg Intake: IV 50 Rocephin 2 gm In Dextrose 5% in 50 Water 50 ml @ 100 mls/hr IV DAILY [facility] Rx#:[id number] Oral 540 600 720 Output: Void Amount 1200 2400 Other: Meal Dinner Breakfast Percent of Meal Consumed 100% 100% Feeding Ability Independent Independent Urine Appearance Clear Clear Urine Color Bright Yellow Bright Yellow Urine Odor Normal # Bowel Movements 0 - Lab 08/22/18 16:37 08/22/18 16:37 Most recent lab results Calcium 9.4 mg/dl (8.6-10.4) 08/22/18 16:37 Microbiology 08/23/18 12:08 Synovial Fluid - Knee Gram Stain - Final 08/23/18 12:08 Synovial Fluid - Knee Body Fluid Culture - Final Staphylococcus aureus 08/23/18 12:10 Bone - Left Gram Stain - Final 08/23/18 12:10 Bone - Left Tissue Culture - Preliminary 08/23/18 12:10 Bone - Left Gram Stain - Final 08/23/18 12:10 Bone - Left Tissue Culture - Preliminary 08/23/18 12:09 Tissue - Knee Gram Stain - Final 08/23/18 12:09 Tissue - Knee Tissue Culture - Preliminary 08/23/18 12:08 Synovial Fluid - Knee Gram Stain - Final 08/23/18 12:08 Synovial Fluid - Knee Body Fluid Culture - Preliminary 08/23/18 12:08 Knee - Left Gram Stain - Final 08/23/18 12:08 Knee - Left Gram Stain - Final 08/23/18 12:08 Knee - Left Anaerobic Culture - Preliminary 08/23/18 12:08 Synovial Fluid - Knee Gram Stain - Final 08/23/18 12:08 Synovial Fluid - Knee Gram Stain - Final 08/23/18 12:08 Synovial Fluid - Knee Anaerobic Culture - Preliminary 08/23/18 12:09 Tissue - Knee Gram Stain - Final 08/23/18 12:09 Tissue - Knee Gram Stain - Final 08/23/18 12:09 Tissue - Knee Anaerobic Culture - Preliminary 08/23/18 12:09 Bone - Left Gram Stain - Final 08/23/18 12:09 Bone - Left Gram Stain - Final 08/23/18 12:09 Bone - Left Anaerobic Culture - Preliminary 08/23/18 12:10 Bone - Left Gram Stain - Final 08/23/18 12:10 Bone - Left Gram Stain - Final 08/23/18 12:10 Bone - Left Anaerobic Culture - Preliminary 08/23/18 14:50 Nose MRSA (PCR) - Final Medications Active Medications: Aspirin (Aspirin) 81 mg PO BID [facility] Last Admin: 08/25/18 09:12 Dose: 81 mg Documented by: [email or web address] Admin: 08/24/18 20:50 Dose: 81 mg Documented by: Admin: 08/24/18 08:20 Dose: 81 mg Documented by: Admin: 08/23/18 20:58 Dose: 81 mg Documented by: SEB Bisacodyl (Dulcolax) 10 mg [place] Q2-3DAYS PRN PRN Reason: Constipation Docusate Sodium (Colace) 100 mg PO BID [facility] Last Admin: 08/25/18 09:12 Dose: 100 mg Documented by: [email or web address] Admin: 08/24/18 20:50 Dose: 100 mg Documented by: Admin: 08/24/18 08:19 Dose: 100 mg Documented by: Admin: 08/23/18 20:57 Dose: 100 mg Documented by: Admin: 08/23/18 13:35 Dose: 100 mg Documented by: [email or web address] Ergocalciferol (Drisdol) 50,000 unit PO SUWE@0900 [facility] Heparin Sodium (Porcine) (Heparin Flush) 2 ml IV Q12 [facility] Last Admin: 08/25/18 09:12 Dose: 2 ml Documented by: Admin: 08/24/18 22:26 Dose: 2 ml Documented by: Admin: 08/24/18 17:16 Dose: 2 ml Documented by: JULIAN Ceftriaxone Sodium 2 gm/ (Dextrose) 50 mls @ 100 mls/hr IV DAILY [facility]; Protocol Last Admin: 08/25/18 09:11 Dose: 100 mls/hr Documented by: [email or web address] Infusion: 08/24/18 17:34 Dose: 100 mls/hr Documented by: Admin: 08/24/18 17:04 Dose: 100 mls/hr Documented by: Admin: 08/24/18 01:33 Dose: Not Given Documented by: SEB Non-Admin Reason: Duplicate Magnesium Hydroxide (Milk Of Magnesia) 30 ml PO BIDP PRN PRN Reason: Constipation Methocarbamol (Robaxin) 750 mg PO Q6HP PRN PRN Reason: Muscle Spasm Last Admin: 08/25/18 02:20 Dose: 750 mg Documented by: TIM Morphine Sulfate (Morphine) 0 mg IV Q1HP PRN PRN Reason: PAIN LEVEL > 6 Last Admin: 08/23/18 15:27 Dose: 2 mg Documented by: [email or web address] Admin: 08/23/18 10:34 Dose: 2 mg Documented by: [email or web address] Ondansetron HCl (Zofran) 4 mg IV Q4HP PRN PRN Reason: Nausea And Vomiting Oxycodone HCl (Roxicodone) 0 mg PO Q4HP PRN PRN Reason: PAIN LEVEL 3-6 Last Admin: 08/25/18 11:05 Dose: 10 mg Documented by: [email or web address] Admin: 08/25/18 02:20 Dose: 10 mg Documented by: Admin: 08/24/18 20:40 Dose: 10 mg Documented by: Admin: 08/24/18 13:39 Dose: 10 mg Documented by: [email or web address] Admin: 08/24/18 04:49 Dose: 10 mg Documented by: Admin: 08/24/18 00:46 Dose: 10 mg Documented by: Admin: 08/23/18 20:58 Dose: 10 mg Documented by: Admin: 08/23/18 16:46 Dose: 10 mg Documented by: [email or web address] Admin: 08/23/18 12:34 Dose: 5 mg Documented by: [email or web address] Diclofenac Sodium [ Voltaren] Topical Gel 1 dose TOPICAL DAILYP PRN PRN Reason: Pain Polyethylene Glycol (Miralax) 17 gm PO DAILYP PRN PRN Reason: Constipation Senna (Senokot) 2 tab PO HS [facility] Last Admin: 08/24/18 20:50 Dose: 2 tab Documented by: Admin: 08/23/18 20:58 Dose: 2 tab Documented by: SEB Sodium Biphosphate/Sodium Phosphate (Fleets Adult) 1 dose [place] Q3-4DAYS PRN PRN Reason: Constipation Sodium Chloride (Saline Flush) 10 ml IV Q8 [facility] Last Admin: 08/25/18 05:04 Dose: Not Given Documented by: TIM Non-Admin Reason: [email or web address] Admin: 08/24/18 22:26 Dose: 10 ml Documented by: Admin: 08/24/18 17:23 Dose: Not Given Documented by: JULIAN Non-Admin Reason: no picc Admin: 08/24/18 04:36 Dose: 10 ml Documented by: Admin: 08/23/18 22:57 Dose: 10 ml Documented by: Admin: 08/23/18 13:32 Dose: Not Given Documented by: [email or web address] Non-Admin Reason: Continuous IV Sodium Chloride (Saline Flush) 10 ml IV UD PRN PRN Reason: FLUSH Sodium Chloride (Saline Flush) 10 ml IV Q12 [facility] Last Admin: 08/25/18 09:13 Dose: 10 ml Documented by: [email or web address] Admin: 08/24/18 20:50 Dose: 10 ml Documented by: Admin: 08/24/18 17:17 Dose: 10 ml Documented by: JULIAN Throat Lozenges (Cepacol) 1 lozenge PO PRN PRN PRN Reason: Sore Throat Assessment and Plan - Narrative A/P Narrative: A: 1. Subacute Left prosthetic knee septic arthritis: - POD # 2 after "Incision and drainage, Liner exchange, Bone biopsies of the left femur and the left tibia, Placement of antibiotic beads" - MSSA growing from extra-synovial operative cultures from left knee - MRSA nasal screen negative - baseline pre-treatment ESR at 95, CRP at 3.9 2. Obesity Recommendations: - Stop IV Vancomycin and IV Ceftriaxone - Start IV Cefazolin 2 gm q8 hrs. Will have Pharmacy use a CADD pump whenever available this week. Meanwhile pt agreeable to come to [facility] 3 times a day for IV Cefazolin injections - will follow synovial fluid sent for 16S rRNA sequencing sent on 08/22/18 - will plan for a 6 week course as below Start date: 08/23/18 Stop date: 09/03/18 Follow up labs: CBC, BMP once weekly CRP and ESR every other week - will schedule a follow up appt. in ID clinic in 4 weeks James Quach MD Infectious diseases
[2018-08-25] MEDS: ceFAZolin 1 GM VIAL IV SCH ×2 (14:45→20:58)
[2018-08-25] MEDS: VANCOMYCIN 1,500 MG in 0.9 % SODIUM CHLORIDE 500 ML IV SCH (18:34)
[2018-08-25] MEDS: SENNOSIDES 1 TABLET PO SCH (20:59)
[2018-08-26] MEDS ORDERED: ERGOCALCIFEROL (VITAMIN D2) 50,000 UNIT CAPSULE PO SCH (09:00)
== END 2018-08-25 21:35 | disposition home or self-care (01) | DRG 478 ==
LOC: MEDSUR 04:49
PROVIDERS: ADMIT Orthopaedic Surgery Foot and Ankle Surgery; ATTEND Orthopaedic Surgery Foot and Ankle Surgery